=== PATIENT | female | born 1960 | race Caucasian/White ===

== ENCOUNTER 2024-11-06 14:30 | Emergency (ER) | payer MEDICARE, MEDICAID ==
[~2024-11-06] VITALS: Ht 157.5 cm; Wt 72.0 kg
[2024-11-06 15:50] VITALS: BP 194/76; PULSE 72; RESP 18; TEMP 97; O2SAT 96
--- NOTE | 2024-11-06 16:20 | ED.PDOC ---
History of Present Illness HPI Comments 64 year old female presents to the ED c/o sciatica pain. Patient states that her pain is localized to her right gluteal region and runs down her posterior right leg down to her ankle. Patient mentions that she has been taking Tylenol and Ibuprofen at home without relief. Patient is verbally requesting [place]'s at this time. Patient states that the pain began spontaneously and denies any trauma prior to onset of symptoms. Denies fever, SOB, chest pain, abdominal pain, nausea, vomiting, diarrhea, headache, dizziness, vision changes, or numbness/tingling of extremities. No other symptoms or modifying factors reported at this time. Patient is alert and oriented x4 and has a stable gait. Chief Complaint: Lower Extremity Time Seen by MD: 16:06 Primary Care Provider: GILSON Reviewed Notes: Nurses Notes, Medications, Allergies Allergies: Coded Allergies: NO KNOWN ALLERGIES (Unverified , 11/06/24) Home Meds Active Scripts Naproxen (Naproxen) 500 Mg Tab, 500 MG PO BIDPC for 10 Days, #20 TAB 0 Refills Prov:RODRIGUEZ CARROLL [employer]ET[employer] MANAGER 11/06/24 Information Source: Patient Mode of Arrival: Wheelchair Severity: Moderate Timing: Days Duration: Since onset Prehospital treatment: None Past Medical History PAST MEDICAL HISTORY: Denies Surgical History: Denies all surgeries MANAGER [employer]NAGEMENT History: Denies all MANAGER [employer] MANAGEMENT Hx Family History Family History: Reviewed,noncontributory to illness Social History Smoker: Non-Smoker Alcohol: Denies ETOH Use Drugs: Denies Drug Use Lives In: Home Constitutional: denies: chills, diaphoresis, fatigue, fever, malaise, sweats, weakness, others EENTM: denies: blurred vision, double vision, ear bleeding, ear discharge, ear drainage, ear pain, ear ringing, eye pain, eye redness, hearing loss, mouth pain, mouth swelling, nasal discharge, nose bleeding, nose congestion, nose pain, photophobia, tearing, throat pain, throat swelling, voice changes, others Respiratory: denies: cough, hemoptysis, orthopnea, SOB at rest, shortness of breath, SOB with excertion, stridor, wheezing, others Cardiovascular: denies: chest pain, dizzy spells, diaphoresis, Dyspnea on exertion, edema, irregular heart beat, left arm pain, lightheadedness, palpitations, PND, syncope, others Gastrointestinal: denies: abdomen distended, abdominal pain, blood streaked bowels, constipated, diarrhea, dysphagia, difficulty swallowing, hematemesis, melena, nausea, poor appetite, poor fluid intake, rectal bleeding, rectal pain, vomiting, others Genitourinary: denies: abnormal vagina bleeding, burning, dyspareunia, dysuria, flank pain, frequency, hematuria, incontinence, pain, , vagina discharge, urgency, others Neurological: denies: dizziness, fainting, headache, left sided numbness, left sided weakness, numbness, paresthesia, pre-existing deficit, right sided numbness, right sided weakness, seizure, speech problems, tingling, tremors, weakness, others Musculoskeletal: reports: muscle pain; denies: back pain, gout, joint pain, joint swelling, muscle stiffness, neck pain, others Integumetry: denies: bruises, change in color, change in hair/nails, dryness, laceration, lesions, lumps, rash, wounds, others Allergic/Immunocompromised: denies: Difficulty Healing, Frequent Infections, Hives, Itching, others Hematologic/Lymphatic: denies: anemia, blood clots, easy bleeding, easy bruising, swollen glands, others Endocrine: denies: excessive hunger, excessive sweating, excessive thirst, excessive urination, flushing, intolerance to cold, intolerance to heat, unexplained weight gain, unexplained weight loss, others Psychiatric: denies: anxiety, bipolar disorder, depression, hopeless, panic disorder, schizophrenia, sleepless, suicidal, others All Other Systems: Reviewed and Negative Physical Exam General Appearance: No Apparent Distress, Normal HEENT: Normal ENT Inspection, Pharynx Normal, TMs Normal Neck: Full Range of Motion, Non-Tender, Normal, Normal Inspection Respiratory: Chest Non-Tender, Lungs Clear, No Accessory Muscle Use, No Respiratory Distress, Normal Breath Sounds Cardiovascular: No Edema, No JVD, No Murmur, No Gallop, Normal Peripheral Pulses, Regular Rate/Rhythm Breast Exam: Deferred Gastrointestinal: No Organomegaly, Non Tender, No Pulsatile Mass, Normal Bowel Sounds, Soft Genitalia: Deferred Pelvic: Deferred Rectal: Deferred Extremities: No calf tenderness, Normal capillary refill, Normal inspection, Normal range of motion, Non-tender, No pedal edema Musculoskeletal : Apperance: Normal Neurologic: Alert, No Motor Deficits, Normal Affect, Normal Mood, No Sensory Deficits Cerebellar Function: Normal Reflexes: Normal Skin: Dry, Normal Color, Warm Lymphatic: No Adenopathy Was a procedure done? Was a procedure done?: No Images 1 - Right straight leg raise test positive. Right lumbosacral TTP to the paraspinal region. Distal neuro sensation intact Differential Dx Considerations may include: musculoskeletal X-Ray, Labs, Meds, VS Vital Signs Date Time Temp Pulse Resp B/P (MAP) Pulse Ox O2 Delivery O2 Flow Rate FiO2 11/06/24 15:50 72 18 96 Room Air 11/06/24 15:50 97.0 72 18 194/76 (115) 96 97.0 11/06/24 14:38 97.0 72 18 187/81 (116) 96 97.0 X-Ray, Labs, Meds, VS Comment Given patient's history and exam: Sciatica, cord compression, cauda equina, aortic dissection, Guillain-[place] syndrome, epidural hematoma/abscess were all considered. Patient not toxic or ill-appearing. Vital signs within acceptable limits. Positive straight leg raise on exam with tenderness to the buttock consistent with sciatica. No vertebral point tenderness noted over the T or L- spine. No paraspinal muscle tenderness noted. No fever or IV drug use the. The patient does not warrant a radiological exam at this time. Advised patient to try to take alternating Ibuprofen and Tylenol to help with inflammation of the sciatic nerve and surrounding tissues and should try to do low back stretches but also try to rest and avoid excessive sitting and bending. On reassessment, the patient's symptoms improved, and patient was able to ambulate without assistive devices. The patient will f/u with PMD to see if his/her symptoms luis daniel. An MRI may need to be ordered if the symptoms worsen or do not improve over time. The patient was counseled in regard to the diagnosis and management of the condition and verbalized understanding of this. The patient understands to return to the ER or seek immediate medical attention if the symptoms worsen or return. Time of 1ST Reevaluation: 16:36 Reevaluation 1ST: Unchanged Patient Education/Counseling: Diagnosis, Treatment, Need For Follow Up Family Education/Counseling: No Family Present Departure 1 Departure Time of Disposition: 16:24 Impression: Primary Impression: Lumbar radiculopathy Disposition: 01 HOME / SELF CARE / HOMELESS Condition: Stable e-Prescriptions Naproxen (Naproxen) 500 Mg Tab 500 MG PO BIDPC for 10 Days, #20 TAB 0 Refills Prov: RODRIGUEZ CARROLL NP 11/06/24 Discharged With: Self Critical Care Note Critical Care Time?: No Stability Stability form required: No Heart Score Heart Score: Heart Score Response (Comments) Value History N/A 0 EKG N/A 0 Age N/A 0 Risk Factors N/A 0 Troponin N/A 0 Total 0 I personally scribed for RODRIGUEZ CARROLL NP ([email or web address]) on 11/06/24 at 16:20. Electronically submitted by Luciano Tobar ([email or web address]). RODRIGUEZ CARROLL NP November 06, 2024 16:20
[2024-11-06] MEDS ORDERED: NAPR-746 PO (16:24)
[2024-11-06] MEDS: methylPREDNISolone SOD SUCC 40 MG/ML VL IM ONE (16:29)
[2024-11-06] MEDS: HYDROcodone-ACET 5/325MG TAB PO ONE (16:29)
[2024-11-06] MEDS: KETOROLAC TROMETH 30 MG/ML 1ML VIAL IM ONE (16:30)
== END 2024-11-06 16:45 | disposition home or self-care (01) ==
LOC: ER 14:35
DX: M54.16 Radiculopathy, lumbar region (principal)
CPT/HCPCS: 96372; 99284; J1885; J2919